=== PATIENT | female | born 1985 | race Two or more races ===

== ENCOUNTER 2019-12-15 17:48 | Inpatient (IN) | payer OTHER ==
[~2019-12-15] VITALS: Ht 162.6 cm; Wt 113.9 kg
[2019-12-15] MEDS ORDERED: ZINC SULFATE 220mg CAP or TAB PO ONE (18:30)
[2019-12-15] MEDS ORDERED: ENOXAPARIN SOD 100 MG/1 ML SYRINGE SC ONE (18:30)
[2019-12-15] MEDS ORDERED: AZITHROMYCIN 500MG/ 250ML 250 ML IV ONE (18:30)
[2019-12-15] MEDS ORDERED: PANTOPRAZOLE 40 MG/10 ML VIAL INJ IV ONE (18:30)
[2019-12-15] MEDS ORDERED: methylPREDNISolone SOD SUCC 125 MG/2 ML VL IV ONE (18:30)
[2019-12-15] MEDS ORDERED: ASCORBIC ACID 500 MG TAB PO ONE (18:30)
[2019-12-15] MEDS ORDERED: hydrOXYchloroQUINE SULFATE 200 MG TAB PO ONE (18:30)
[2019-12-15 19:02] LABS: Basophils # (auto) 0 10 ^3/uL (0-0.2); Basophils % (auto) 0.2 % (0.0-2.0); Eosinophils # (auto) 0 10 ^3/uL (0-0.8); Hematocrit 33.9 % (36.0-46.0); Hemoglobin 10.8 g/dL (12.2-16.2); Lymphocytes # (auto) 1.7 10 ^3/uL (0.4-5.4); Lymphocytes % (auto) 24.2 % (10.0-50.0); Mean Corpuscular Hemoglobin 23.6 pg (28.0-32.0); Mean Corpuscular Volume 73.8 fL (80.0-100.0); Monocytes # (auto) 0.4 10 ^3/uL (0-1.3); Monocytes % (auto) 5.7 % (0.0-12.0); Neutrophils # (auto) 4.8 10 ^3/uL (1.6-8.6); Neutrophils % (auto) 69.9 % (37.0-80.0); Platelet Count (auto) 284 10^3/uL (140-450); Red Blood Cells 4.59 10^6/uL (4.0-5.20); Red Cell Distribution Width 16.7 % (11.8-14.3); White Blood Cell 6.9 10^3/uL (4.4-10.8)
[2019-12-15 19:07] LABS: Albumin 2.6 g/dL (3.4-5.0); Anion Gap 7 (5-15); Blood Urea Nitrogen 6 mg/dL (7-18); Calcium 7.1 mg/dL (8.5-10.1); Carbon Dioxide 22 mmol/L (21-32); Chloride 108 mmol/L (98-107); Glucose 112 mg/dL (74-106); Sodium 137 mmol/L (136-145)
[2019-12-15 19:16] LABS: Alanine Aminotransferase 18 U/L (13-56); Alkaline Phosphatase 50 U/L (45-117); Aspartate Aminotransferase 16 U/L (15-37); BUN/Creatinine Ratio 9.5; Bilirubin, Total 0.6 mg/dL (0.2-1.0); GFR African American 139 mL/min; GFR Non-African American 115 mL/min; Lactate Dehydrogenase 222 U/L (84-246); Total Protein 6.8 g/dL (6.4-8.2)
[2019-12-15 19:22] LABS: Potassium 2.7 mmol/L (3.5-5.1)
[2019-12-15] MEDS ORDERED: POTASSIUM CHL 20MEQ/100ML 100 ML IV ONE (19:30)
[2019-12-15] MEDS ORDERED: ACETAMINOPHEN 500 MG TAB PO PRN (21:45)
[2019-12-15] MEDS ORDERED: NITROGLYCERIN 0.4 MG SL TAB SL PRN (22:00)
[2019-12-15] MEDS ORDERED: MORPHINE SULF INJ 2 MG/ML SYRINGE 1ML IV PRN (22:00)
[2019-12-15] MEDS: FAMOTIDINE 20 MG TAB PO SCH (22:09)
--- NOTE | 2019-12-16 06:15 | NUR ---
Telemetry admit from [facility] admitted to Telemetry unit after SBAR received. Patient oriented to Maria Guadalupe Schumacher, primary RN, unit, room, bed, and unit policies regarding patient care and visiting hours. Patient now on continuous telemetry monitoring, tele box # 31 and telemetry reading on arrival to unit is sinus rhythm. Patient placed on bedside oxygen, weighed by bedscale and encouraged to call if they need something. All questions and concerns addressed, patient verbalized understanding.
[2019-12-16 06:45] VITALS: BP 96/55
[2019-12-16] MEDS ORDERED: ENOXAPARIN SOD 40 MG/0.4 ML SYRINGE SC SCH (10:00)
[2019-12-16] MEDS ORDERED: AZITHROMYCIN 500MG/ 250ML 250 ML IV SCH (10:00)
[2019-12-16 10:20] LABS: Basophils # (auto) 0 10 ^3/uL (0-0.2); Eosinophils # (auto) 0 10 ^3/uL (0-0.8); Hemoglobin 10.2 g/dL (12.2-16.2); Lymphocytes # (auto) 0.9 10 ^3/uL (0.4-5.4); Mean Corpuscular Volume 73.6 fL (80.0-100.0); Monocytes # (auto) 0.3 10 ^3/uL (0-1.3)
[2019-12-16] MEDS: ASCORBIC ACID 1,000 MG TAB PO SCH (10:20)
[2019-12-16] MEDS: ZINC SULFATE 220mg CAP or TAB PO SCH (10:20)
[2019-12-16] MEDS: CHOLECALCIFEROL (VITD3) 1,000UNIT=25mCg TAB PO SCH (10:20)
[2019-12-16] MEDS: FAMOTIDINE 20 MG TAB PO SCH ×2 (10:21→22:00)
[2019-12-16 10:22] LABS: Basophils % (auto) 0.1 % (0.0-2.0); Hematocrit 31.3 % (36.0-46.0); Lymphocytes % (auto) 12.3 % (10.0-50.0); Mean Corpuscular Hemoglobin 23.9 pg (28.0-32.0); Mean Corpuscular Hgb Conc. 32.5 g/dL (32.0-36.0); Monocytes % (auto) 3.5 % (0.0-12.0); Neutrophils # (auto) 6.5 10 ^3/uL (1.6-8.6); Neutrophils % (auto) 84.1 % (37.0-80.0); Platelet Count (auto) 292 10^3/uL (140-450); Red Blood Cells 4.25 10^6/uL (4.0-5.20); Red Cell Distribution Width 16.6 % (11.8-14.3); White Blood Cell 7.7 10^3/uL (4.4-10.8)
[2019-12-16 10:44] LABS: Albumin 2.8 g/dL (3.4-5.0); Calcium 7.9 mg/dL (8.5-10.1); Potassium 3.8 mmol/L (3.5-5.1)
[2019-12-16] MEDS ORDERED: levoFLOXacin 250 MG TAB PO ONE (10:45)
[2019-12-16 10:48] LABS: BUN/Creatinine Ratio 13.3; Bilirubin, Total 0.3 mg/dL (0.2-1.0); Total Protein 7.1 g/dL (6.4-8.2)
--- NOTE | 2019-12-16 12:03 | NUR ---
HYDROXYCHOLOQUINE DR. GRACE EXPLAINED THE RISKS TO THE PATIENT AND THAT THE MEDICATION IS NOT APPROVED BY THE FDA FOR TREATMENT OF COVID. HE EXPLAINED THAT IT IS BEING TRIALED AND ASKED IF SHE WOULD LIKE TO TAKE IT. PATIENT AGREED.
[2019-12-16] MEDS: DOXYCYCLINE 100 MG TAB/CAP PO SCH ×2 (13:00→22:01)
[2019-12-16] MEDS: DexAMETHasone SOD PHOS 10MG/1ML VIAL INJ IV SCH (13:01)
[2019-12-16] MEDS: ALBUTEROL SULF HFA 90MCG INH 200DOSE IN SCH ×2 (15:03→22:03)
[2019-12-16 15:53] VITALS: BP 96/55
[2019-12-16] MEDS ORDERED: FUROSEMIDE 20 MG/2 ML VIAL IV ONE (17:15)
[2019-12-16] MEDS ORDERED: POTASSIUM CHLORIDE 8 MEQ TAB PO ONE (17:15)
--- NOTE | 2019-12-16 19:25 | NUR ---
Opening Shift Note Received report from day time rn. Assumed care of patient, awake and alert. No S/S of distress/SOB or pain. Instructed on POC and to call for assist PRN. Fall precaution measures in place. Will continue to monitor for changes Q1hr and PRN.
[2019-12-16] MEDS ORDERED: methylPREDNISolone SOD SUCC 40 MG/ML VL IV ONE (19:45)
[2019-12-16] MEDS ORDERED: diphenhdrAMINE HCL 50 MG/1 ML VL IV ONE (19:45)
[2019-12-16] MEDS ORDERED: ACETAMINOPHEN 650 mg PER 20 mL UD PO ONE (19:45)
[2019-12-16] MEDS ORDERED: methylPREDNISolone SOD SUCC 40 MG/ML VL ONE (21:41)
[2019-12-16] MEDS ORDERED: diphenhdrAMINE HCL 50 MG/1 ML VL ONE (21:41)
[2019-12-16 22:00] VITALS: BP 126/72
[2019-12-16] MEDS: hydrOXYchloroQUINE SULFATE 200 MG TAB PO SCH (22:00)
[2019-12-16] MEDS: ENOXAPARIN SOD 80 MG/0.8ML SYRINGE SC SCH (22:02)
[2019-12-16] MEDS: TOCILIZUMAB 400 MG in SODIUM CHL 0.9% 80 ML IV SCH (22:31)
[2019-12-17] MEDS: TEMAZEPAM 15 MG CAP PO PRN ×2 (00:10→23:33)
[2019-12-17 05:00] VITALS: BP 107/72
[2019-12-17] MEDS ORDERED: diphenhdrAMINE HCL 50 MG/1 ML VL IV ONE (07:45)
[2019-12-17] MEDS ORDERED: ACETAMINOPHEN 650 mg PER 20 mL UD PO ONE (07:45)
[2019-12-17] MEDS ORDERED: methylPREDNISolone SOD SUCC 40 MG/ML VL IV ONE (07:45)
--- NOTE | 2019-12-17 08:10 | NUR ---
Actemra - pharm Called pharmacy to request Actemra. They said they would send it up. Benadryl, Solumedrol, and Tylenol given.
[2019-12-17 09:00] VITALS: BP 103/67
[2019-12-17] MEDS: TOCILIZUMAB 400 MG in SODIUM CHL 0.9% 80 ML IV SCH (09:23)
[2019-12-17] MEDS: DexAMETHasone SOD PHOS 10MG/1ML VIAL INJ IV SCH (09:23)
[2019-12-17] MEDS: FAMOTIDINE 20 MG TAB PO SCH ×2 (09:24→21:27)
[2019-12-17] MEDS: ZINC SULFATE 220mg CAP or TAB PO SCH (09:24)
[2019-12-17] MEDS: FUROSEMIDE 20 MG/2 ML VIAL IV SCH (09:24)
[2019-12-17] MEDS: POTASSIUM CHLORIDE 8 MEQ TAB PO SCH (09:24)
[2019-12-17] MEDS: hydrOXYchloroQUINE SULFATE 200 MG TAB PO SCH (09:25)
[2019-12-17] MEDS: DOXYCYCLINE 100 MG TAB/CAP PO SCH ×2 (09:25→21:27)
[2019-12-17] MEDS: ENOXAPARIN SOD 80 MG/0.8ML SYRINGE SC SCH ×2 (09:25→21:27)
[2019-12-17] MEDS: ASCORBIC ACID 1,000 MG TAB PO SCH (09:25)
[2019-12-17] MEDS: CHOLECALCIFEROL (VITD3) 1,000UNIT=25mCg TAB PO SCH (09:25)
[2019-12-17] MEDS: ALBUTEROL SULF HFA 90MCG INH 200DOSE IN SCH ×3 (09:33→23:16)
[2019-12-17] MEDS ORDERED: AZITHROMYCIN 250 MG TAB PO SCH (10:00)
[2019-12-17] MEDS ORDERED: levoFLOXacin 250 MG TAB PO SCH (10:00)
[2019-12-17 13:00] VITALS: BP 124/84
--- NOTE | 2019-12-17 16:22 | NUR ---
Anxiety RT and WET SILK HANGER said the patient was anxious and holding her breath. This nurse spoke with the patient and she said she had been out of breath because the BSC wasn't emptied so she removed her O2 and walked to the bathroom. This caused SOB and anxiety. This nurse emptied the BSC and informed her to let us know if she used it and it needed to be emptied rather than walking to the bathroom. She verbalized agreement and said she was no longer as anxious.
[2019-12-17 17:00] VITALS: BP 119/78
--- NOTE | 2019-12-17 19:20 | NUR ---
Opening Shift Note Received report from from day shift RN. Assumed care of patient, awake and a0x4. No S/S of distress/SOB or pain. Instructed on POC and to call for assist PRN. Fall precaution measures in place. Will continue to monitor for changes Q1hr and PRN.
--- NOTE | 2019-12-17 19:40 | NUR ---
CHEST PAIN PT IS HAVING CHEST PAIN 01/08. INITIATE CHEST PAIN PROTOCOL RAISED PT O2 TO 6L, VITAL SIGNS ARE FOLLOWS B/P- 131/71, HR-98, O2- 90%, RR-24, T-97.6. GAVE PT NTROSTAT AFTER 5MIN PT CHEST PAIN ARE GONE REASSESS PT VITAL SIGN ARE FOLLOW B/P-104/61 HR -100 O2-90% RR-20 NO S/S OF DISTRESS OR SOB . EKG PERFORM NO ABNORMALITIES NOTED . 20:21-MD Called/paged called regarding pt chest pain Waiting for call back. Continue care. 20:26- MD returned call Dr. thompson returned call, updated on patient status and reason for call, orders received. order read back and verified by Continue care. Dr. Thompson did not signed ekg because of covid precaution
[2019-12-17 22:12] VITALS: BP 121/71
--- NOTE | 2019-12-17 23:18 | NUR ---
received call from bus monitor received call from bus monitor that pt is in afib went to assess pt, pt is sob trying to get back in bed from using the bed side commode.Assist pt back into bed place pt on 10l Oxymizer, vital sign as follow b/p-116/87,hr-88,o2-90%, rr-24,t-98.4 and perform a EKG no abnormality noted . Pt is now calm, no s/s of distress or sob is noted
[2019-12-17] MEDS: ONDANSETRON HCL 4 MG/2 ML VIAL IV PRN (23:33)
[2019-12-18 05:00] VITALS: BP 109/61
[2019-12-18] MEDS: ALBUTEROL SULF HFA 90MCG INH 200DOSE IN SCH ×3 (06:58→23:48)
[2019-12-18 08:54] VITALS: BP 133/87
[2019-12-18] MEDS: POTASSIUM CHLORIDE 8 MEQ TAB PO SCH (10:00)
[2019-12-18] MEDS: CHOLECALCIFEROL (VITD3) 1,000UNIT=25mCg TAB PO SCH (10:00)
[2019-12-18] MEDS: FUROSEMIDE 20 MG/2 ML VIAL IV SCH (10:17)
[2019-12-18] MEDS: ZINC SULFATE 220mg CAP or TAB PO SCH (10:17)
[2019-12-18] MEDS: DOXYCYCLINE 100 MG TAB/CAP PO SCH ×2 (10:18→22:23)
[2019-12-18] MEDS: hydrOXYchloroQUINE SULFATE 200 MG TAB PO SCH ×2 (10:18→22:23)
[2019-12-18] MEDS: ENOXAPARIN SOD 80 MG/0.8ML SYRINGE SC SCH ×2 (10:18→22:23)
[2019-12-18] MEDS: DexAMETHasone SOD PHOS 10MG/1ML VIAL INJ IV SCH (10:19)
[2019-12-18] MEDS: ASCORBIC ACID 1,000 MG TAB PO SCH (10:19)
[2019-12-18] MEDS: FAMOTIDINE 20 MG TAB PO SCH ×2 (10:19→22:22)
[2019-12-18 12:30] VITALS: BP 118/57
[2019-12-18 17:27] VITALS: BP 131/80
[2019-12-18] MEDS: Ensure HIGH Protein Chocolate 8oz Bottle PO SCH (18:00)
[2019-12-18] MEDS: TEMAZEPAM 15 MG CAP PO PRN (22:22)
[2019-12-18 23:23] VITALS: BP 100/65
[2019-12-19 05:37] VITALS: BP 128/68
--- NOTE | 2019-12-19 07:35 | NUR ---
Opening Shift Note Assumed care of patient, awake and a0x4. No S/S of distress/SOB or pain. Instructed on POC and to call for assist PRN. Fall precaution measures in place. Will continue to monitor for changes Q1hr and PRN.
[2019-12-19 08:38] LABS: Hemoglobin 11.2 g/dL (12.2-16.2)
[2019-12-19 08:40] LABS: Hematocrit 34.5 % (36.0-46.0); Mean Corpuscular Hemoglobin 23.6 pg (28.0-32.0); Mean Corpuscular Hgb Conc. 32.4 g/dL (32.0-36.0); Mean Corpuscular Volume 72.9 fL (80.0-100.0); Platelet Count (auto) 414 10^3/uL (140-450); Red Blood Cells 4.73 10^6/uL (4.0-5.20); Red Cell Distribution Width 16.5 % (11.8-14.3); White Blood Cell 7.2 10^3/uL (4.4-10.8)
[2019-12-19 08:42] LABS: Basophils % (manual) 0 (0.0-2.0); Blast Cells 0; Eosinophils % (manual) 0 (0-7); Metamyelocytes % 0; Promyelocytes % 0; Reactive Lymphocytes 0
[2019-12-19] MEDS: ALBUTEROL SULF HFA 90MCG INH 200DOSE IN SCH ×3 (08:49→22:50)
[2019-12-19 09:00] VITALS: BP 116/71
[2019-12-19 09:03] LABS: Albumin 2.7 g/dL (3.4-5.0); Calcium 8.5 mg/dL (8.5-10.1); Potassium 3.7 mmol/L (3.5-5.1)
[2019-12-19 09:07] LABS: BUN/Creatinine Ratio 27.3; Bilirubin, Total 0.5 mg/dL (0.2-1.0)
[2019-12-19 09:14] LABS: Band Neutrophils % (manual) 1; Lymphocytes % (manual) 41 (10.0-50.0); Monocytes % (manual) 14 (0-12); Myelocytes % 2
[2019-12-19] MEDS: DexAMETHasone SOD PHOS 10MG/1ML VIAL INJ IV SCH (10:25)
[2019-12-19] MEDS: Ensure HIGH Protein Chocolate 8oz Bottle PO SCH ×3 (10:25→19:03)
[2019-12-19] MEDS: hydrOXYchloroQUINE SULFATE 200 MG TAB PO SCH ×2 (10:26→22:52)
[2019-12-19] MEDS: ZINC SULFATE 220mg CAP or TAB PO SCH (10:26)
[2019-12-19] MEDS: FAMOTIDINE 20 MG TAB PO SCH ×2 (10:26→22:52)
[2019-12-19] MEDS: FUROSEMIDE 20 MG/2 ML VIAL IV SCH (10:26)
[2019-12-19] MEDS: DOXYCYCLINE 100 MG TAB/CAP PO SCH ×2 (10:26→22:52)
[2019-12-19] MEDS: POTASSIUM CHLORIDE 8 MEQ TAB PO SCH (10:26)
[2019-12-19] MEDS: ASCORBIC ACID 1,000 MG TAB PO SCH (10:26)
[2019-12-19] MEDS: ENOXAPARIN SOD 80 MG/0.8ML SYRINGE SC SCH ×2 (10:27→22:52)
[2019-12-19] MEDS: CHOLECALCIFEROL (VITD3) 1,000UNIT=25mCg TAB PO SCH (10:27)
[2019-12-19 11:51] VITALS: BP 149/87
[2019-12-19] MEDS ORDERED: levoFLOXacin 250 MG TAB PO ONE (12:00)
[2019-12-19 13:00] VITALS: BP 100/68
--- NOTE | 2019-12-19 14:29 | NUR ---
Nutrition Assessment Notes please see attached link for complete assessment Est energy needs ABW 83 [id number] kcal (17-20 kcal/kg BW), Est protein needs: 83-91 g (1.0-1.1g/kg BW). Will reassess prn. Addendum: 12/19/19 at [address] Amended: Links added.
[2019-12-19 17:21] VITALS: BP 104/71
--- NOTE | 2019-12-19 19:40 | NUR ---
Opening Shift Note Received report and assumed care of patient. Patient is awake and alert. No signs or symptoms of distress noted, patient currently denies pain. Instructed patient on plan of care and to call for assistance as needed. Will continue to monitor.
[2019-12-19 22:00] VITALS: BP 106/77
[2019-12-20 05:00] VITALS: BP 113/75
--- NOTE | 2019-12-20 05:40 | NUR ---
[facility] Hospitalist Patient states feeling "light headed". Patient's apical pulse 46, Blood pressures 92/61 and 98/50. Patient drank juice, heart rate in 50s-60s. Patricia Hospitalist, no new orders at this time, states to call back if it reoccurs. Will continue to monitor.
[2019-12-20] MEDS: ONDANSETRON HCL 4 MG/2 ML VIAL IV PRN (05:43)
[2019-12-20] MEDS: hydrOXYchloroQUINE SULFATE 200 MG TAB PO SCH ×2 (08:58→21:42)
[2019-12-20] MEDS: DexAMETHasone SOD PHOS 10MG/1ML VIAL INJ IV SCH (08:58)
[2019-12-20] MEDS: FAMOTIDINE 20 MG TAB PO SCH ×2 (08:58→21:42)
[2019-12-20] MEDS: levoFLOXacin 250 MG TAB PO SCH (08:58)
[2019-12-20] MEDS: POTASSIUM CHLORIDE 8 MEQ TAB PO SCH (08:58)
[2019-12-20] MEDS: Ensure HIGH Protein Chocolate 8oz Bottle PO SCH ×2 (08:58→11:33)
[2019-12-20] MEDS: CHOLECALCIFEROL (VITD3) 1,000UNIT=25mCg TAB PO SCH (08:59)
[2019-12-20] MEDS: DOXYCYCLINE 100 MG TAB/CAP PO SCH ×2 (08:59→21:42)
[2019-12-20 09:00] VITALS: BP 108/71
[2019-12-20] MEDS: ASCORBIC ACID 1,000 MG TAB PO SCH (09:00)
[2019-12-20] MEDS: FUROSEMIDE 20 MG/2 ML VIAL IV SCH (09:00)
[2019-12-20] MEDS: ZINC SULFATE 220mg CAP or TAB PO SCH (09:01)
--- NOTE | 2019-12-20 10:53 | NUR ---
Opening Shift Note Assumed care of patient, awake and a0x4. PT CURRENTLY ON 5L OXYMIZER No S/S of distress/SOB or pain. Instructed on POC and to call for assist PRN. Fall precaution measures in place. Will continue to monitor for changes Q1hr and PRN. Addendum: 12/20/19 at 1054 by LEELA ROCK RN RN INCORRECT TIME. CORRECT TIME 8420
[2019-12-20] MEDS: ENOXAPARIN SOD 80 MG/0.8ML SYRINGE SC SCH ×2 (11:32→21:42)
[2019-12-20] MEDS: ALBUTEROL SULF HFA 90MCG INH 200DOSE IN SCH ×2 (11:35→16:21)
[2019-12-20 13:00] VITALS: BP 105/70
--- NOTE | 2019-12-20 14:51 | NUR ---
PT TITRATED TO 3L VIA NC SPO2 97%. WILL CONTINUE TO MONITOR Q1HR AND PRN
[2019-12-20 16:51] VITALS: BP 117/67
--- NOTE | 2019-12-20 16:52 | NUR ---
assessment Patient is a 34 year old female who is alert and oriented and Covid positive. Patients cognitive abilities are intact. Prior to admission patient lived home with family and functioned independently. Patient informed me she is able to care for her own ADLs. Per patient she will return home to her prior living arrangements post discharge and family will transport her home. Patient informed me her PCP is Dr Vergara in [place]. Patient informed me she works at an [employer] and may have got covid 19 from work. Patients is positive also and works at the same facility. Patient is on 7L oxygen today. Patient may need oxygen on discharge. I will continue to monitor and follow up as appropriate. I informed patient she has a right to speak to a social insurance analyst regarding all care. I informed patient she has a right to participate in any and all discharge planning. Patient does not have a POA and advanced directive. I have offered patient information on POA and advanced directives. I informed the patient the advantages and benefits of having an Advanced Directive. Patient verbalized understanding and agreed to discharge plan. Addendum: 12/20/19 at 1653 by Gema PEREZ Amended: Links added.
--- NOTE | 2019-12-20 19:15 | NUR ---
Opening Shift Note Assumed care of patient, awake and alert. No S/S of distress/SOB or pain. Instructed on POC and to call for assist PRN, will continue to monitor for changes Q1hr and PRN.
[2019-12-20 20:00] VITALS: BP 102/72
[2019-12-20] MEDS: TEMAZEPAM 15 MG CAP PO PRN (21:42)
[2019-12-20 22:00] VITALS: BP 102/72
[2019-12-21] MEDS: ALBUTEROL SULF HFA 90MCG INH 200DOSE IN SCH ×4 (00:21→23:16)
[2019-12-21 05:00] VITALS: BP 105/62
[2019-12-21 06:59] LABS: White Blood Cell 10.4 10^3/uL (4.4-10.8)
[2019-12-21 07:05] LABS: Hematocrit 36.4 % (36.0-46.0); Hemoglobin 11.9 g/dL (12.2-16.2); Mean Corpuscular Hgb Conc. 32.6 g/dL (32.0-36.0); Mean Corpuscular Volume 73.6 fL (80.0-100.0); Platelet Count (auto) 445 10^3/uL (140-450); Red Blood Cells 4.95 10^6/uL (4.0-5.20); Red Cell Distribution Width 16.6 % (11.8-14.3)
[2019-12-21 07:21] LABS: Basophils % (manual) 0 (0.0-2.0); Blast Cells 0; Eosinophils % (manual) 0 (0-7); Promyelocytes % 0; Reactive Lymphocytes 0
[2019-12-21 07:28] LABS: Potassium 4.2 mmol/L (3.5-5.1)
[2019-12-21 07:34] LABS: Albumin 2.8 g/dL (3.4-5.0); BUN/Creatinine Ratio 31.3; Bilirubin, Total 0.4 mg/dL (0.2-1.0); CRP High Sensitivity 0.68 mg/dL (< 0.3); Calcium 8.6 mg/dL (8.5-10.1); Total Protein 6.7 g/dL (6.4-8.2)
[2019-12-21] MEDS: Ensure HIGH Protein Chocolate 8oz Bottle PO SCH ×3 (08:00→18:05)
[2019-12-21 08:16] VITALS: BP 102/52
[2019-12-21 09:39] LABS: Band Neutrophils % (manual) 1; Lymphocytes % (manual) 27 (10.0-50.0); Metamyelocytes % 5; Monocytes % (manual) 10 (0-12); Myelocytes % 4
[2019-12-21] MEDS: levoFLOXacin 250 MG TAB PO SCH (10:00)
[2019-12-21] MEDS: FUROSEMIDE 20 MG/2 ML VIAL IV SCH (10:47)
[2019-12-21] MEDS: DexAMETHasone SOD PHOS 10MG/1ML VIAL INJ IV SCH (10:52)
[2019-12-21] MEDS: ZINC SULFATE 220mg CAP or TAB PO SCH (10:52)
[2019-12-21] MEDS: hydrOXYchloroQUINE SULFATE 200 MG TAB PO SCH ×2 (10:52→21:25)
[2019-12-21] MEDS: FAMOTIDINE 20 MG TAB PO SCH ×2 (10:52→21:25)
[2019-12-21] MEDS: DOXYCYCLINE 100 MG TAB/CAP PO SCH ×2 (10:52→21:25)
[2019-12-21] MEDS: ASCORBIC ACID 1,000 MG TAB PO SCH (10:52)
[2019-12-21] MEDS: ENOXAPARIN SOD 80 MG/0.8ML SYRINGE SC SCH ×2 (10:52→21:25)
[2019-12-21] MEDS: CHOLECALCIFEROL (VITD3) 1,000UNIT=25mCg TAB PO SCH (10:52)
[2019-12-21] MEDS: POTASSIUM CHLORIDE 8 MEQ TAB PO SCH (10:52)
--- NOTE | 2019-12-21 11:14 | NUR ---
Angel ZARATE AT BEDSIDE. NEW ORDERS RECIEVED. SEE EMAR.
[2019-12-21 12:35] VITALS: BP 104/67
--- NOTE | 2019-12-21 16:07 | NUR ---
1540 12/21/19 - Contacted [facility] at [phone], requesting authorization for continued inpatient stay. Spoke with data mining analyst Mame who provided authorization [id number] for continued inpatient stay.
[2019-12-21 16:27] VITALS: BP 100/63
--- NOTE | 2019-12-21 18:58 | NUR ---
IV insertion IV access obtained, via clean sterile technique by inserting 22 gauge catheter at LFA after 1 attempt(s). IV secured properly. No trauma to site. Patient tolerated well. PATIENT REMOVED OWN IV ON ACCIDENT. NOTE:
[2019-12-21 20:00] VITALS: BP 100/50
[2019-12-21] MEDS: ACETYLCYSTEINE ORAL for CIN 20%(200MG/ML) 4ML PO SCH (21:57)
[2019-12-21 22:00] VITALS: BP 100/51
[2019-12-22 05:00] VITALS: BP 100/58
[2019-12-22] MEDS: Ensure HIGH Protein Chocolate 8oz Bottle PO SCH ×3 (08:00→18:00)
[2019-12-22 08:48] VITALS: BP 104/62
[2019-12-22] MEDS: ALBUTEROL SULF HFA 90MCG INH 200DOSE IN SCH ×2 (09:30→15:30)
--- NOTE | 2019-12-22 09:34 | NUR ---
0900 12/22/19 - Contacted [facility] Student Lay at [phone], regarding status of home oxygen order. Per Lay she will follow up with person assigned to this order and call me back, provider call back information. Addendum: 12/22/19 at 0941 by Kika Salcedo RN, CM Wrong patient
[2019-12-22] MEDS: DexAMETHasone SOD PHOS 10MG/1ML VIAL INJ IV SCH (09:39)
[2019-12-22] MEDS: FUROSEMIDE 20 MG/2 ML VIAL IV SCH (09:39)
[2019-12-22] MEDS: POTASSIUM CHLORIDE 8 MEQ TAB PO SCH (09:40)
[2019-12-22] MEDS: DOXYCYCLINE 100 MG TAB/CAP PO SCH ×2 (09:40→21:41)
[2019-12-22] MEDS: FAMOTIDINE 20 MG TAB PO SCH ×2 (09:40→21:41)
[2019-12-22] MEDS: levoFLOXacin 250 MG TAB PO SCH (09:40)
[2019-12-22] MEDS: ZINC SULFATE 220mg CAP or TAB PO SCH (09:40)
[2019-12-22] MEDS: ENOXAPARIN SOD 80 MG/0.8ML SYRINGE SC SCH ×2 (09:41→21:41)
[2019-12-22] MEDS: ASCORBIC ACID 1,000 MG TAB PO SCH (09:41)
[2019-12-22] MEDS: CHOLECALCIFEROL (VITD3) 1,000UNIT=25mCg TAB PO SCH (09:41)
[2019-12-22] MEDS: ACETYLCYSTEINE ORAL for CIN 20%(200MG/ML) 4ML PO SCH ×2 (09:55→21:49)
--- NOTE | 2019-12-22 12:03 | NUR ---
Nutrition Followup Note Wt 112.4kg Pt is covid positive in the covid wing. Pt current with a regular diet with adequate po intake aeb pt with avg po intake of 85% per RN note. Will continue to monitor pt po intake, labs, skin. Est energy needs ABW 83 [id number] kcal (17-20 kcal/kg BW), Est protein needs: 83-91 g (1.0-1.1g/kg BW). Will reassess prn. Labs: BUN 20H, Alb 2.8L BM: pt with 2 BMs 12/21 per Rn note Skin: BS 22 low risk, full details in care manager note PES; Altered nutrition related lab values r.t current chronic medical condition aeb hyperglycemia, hypocalcemia, mod hypoalb Decreased nutrient needs r/t adiposity aeb pt`s high BMI of 42.8 kgm2 Comments 1) refer to [facility] dietian on DC 2) continue current plan of care 3) D/C ensure Expected Outcomes/Goals: pt will have improved labs pt will not gain any more wt F/u mod 3-5 days
--- NOTE | 2019-12-22 12:06 | NUR ---
REGARDING LIGHTHEADED: CALLED TO INFORM Angel RAMOS OF PATIENTS LIGHT HEADEDNESS DURING AMBULATION AND WHILE SITTING. EKG COMPLETED WITH RESULTS CALLED TO Angel RECEIVED NEW ORDERS. SEE EMAR.
[2019-12-22] MEDS: SODIUM CHLORIDE 0.9% 1,000 ML IV SCH ×2 (12:35→22:15)
--- NOTE | 2019-12-22 12:45 | NUR ---
1115 12/22/19 - Faxed to [facility] at [phone] face sheet, order for home oxygen, H/P, progress note. Requesting authorization for DME. Pending review and approved authorization
[2019-12-22 12:50] VITALS: BP 120/64
[2019-12-22 15:27] VITALS: BP 120/64
[2019-12-22 16:48] VITALS: BP 124/70
--- NOTE | 2019-12-22 19:20 | NUR ---
Opening note Assumed care of patient. Patient alert and orientated x4. NO sob or distress noted at this time. Patient is on Room air. POC reviewed. Bed locked in lowest position side rails up x2. Call light within reach. Will continue to monitor.
--- NOTE | 2019-12-22 21:30 | NUR ---
Assist patient to bathroom. Patient wanted to use the bathroom, patient ambulated with stand by assistance. Patient reports no SOB or lightheadedness. Patient reports no symptoms or pain at this time. Will continue to monitor.
[2019-12-22 22:00] VITALS: BP 109/62
[2019-12-23] MEDS: ALBUTEROL SULF HFA 90MCG INH 200DOSE IN SCH ×2 (00:05→08:42)
[2019-12-23 05:09] VITALS: BP 145/91
--- NOTE | 2019-12-23 07:06 | NUR ---
Closing note Endorsed care to day shift RN patient is asleep chest evenly rising. NO signs of distress noted.
[2019-12-23] MEDS: Ensure HIGH Protein Chocolate 8oz Bottle PO SCH ×2 (08:00→12:16)
[2019-12-23 09:00] VITALS: BP 106/66
[2019-12-23] MEDS ORDERED: DOX100T PO (09:02)
[2019-12-23] MEDS ORDERED: CHOL1000 PO (09:02)
[2019-12-23] MEDS ORDERED: ALBUAER3 IN (09:02)
[2019-12-23] MEDS ORDERED: FERR-7 PO (09:04)
[2019-12-23] MEDS: FUROSEMIDE 20 MG/2 ML VIAL IV SCH (09:05)
[2019-12-23] MEDS: POTASSIUM CHLORIDE 8 MEQ TAB PO SCH (09:08)
[2019-12-23] MEDS: ACETYLCYSTEINE ORAL for CIN 20%(200MG/ML) 4ML PO SCH (09:33)
[2019-12-23] MEDS: DexAMETHasone SOD PHOS 10MG/1ML VIAL INJ IV SCH (09:33)
[2019-12-23] MEDS: ZINC SULFATE 220mg CAP or TAB PO SCH (09:33)
[2019-12-23] MEDS: FAMOTIDINE 20 MG TAB PO SCH (09:34)
[2019-12-23] MEDS: ENOXAPARIN SOD 80 MG/0.8ML SYRINGE SC SCH (09:34)
[2019-12-23] MEDS: DOXYCYCLINE 100 MG TAB/CAP PO SCH (09:34)
[2019-12-23] MEDS: CHOLECALCIFEROL (VITD3) 1,000UNIT=25mCg TAB PO SCH (09:34)
[2019-12-23] MEDS: ASCORBIC ACID 1,000 MG TAB PO SCH (09:34)
--- NOTE | 2019-12-23 10:20 | NUR ---
1000 12/23/19 - Contacted [facility] at [phone] requesting update on DME order for home oxygen, per comp field case manager AJ who stated that the [facility] policy is that patient's O2 on room air must be below 90 % to qualify for home oxygen.
[2019-12-23] MEDS ORDERED: hydrOXYchloroQUINE SULFATE 200 MG TAB PO SCH (12:00)
[2019-12-23 12:14] VITALS: BP 118/67
--- NOTE | 2019-12-23 13:57 | NUR ---
Discharge instructions given as ordered. Encourage to follow up with PMD as instructed. Patient discharged and instructed on all new medications. instructed to self-isolate per M.D. orders. instructed on home oxygen use. All questions and concerns addressed. Patient verbalized understanding. Medication reconciliation form completed and copy given to patient. IV removed with catheter intact, pressure dressing applied, silva catheter removed. Telemetry unit returned to ICU. Patient taken to vehicle via wheelchair with all personal belongings, accompanied by staff and family member. No distress noted at time of departure.
== END 2019-12-23 13:56 | disposition home or self-care (01) | DRG 871 ==
LOC: EDBD 17:48 → ER 17:48 → TELE 17:49 → TELE-EAST 12-16 08:29
PROVIDERS: ADMIT Nurse Practitioner; ATTEND Internal Medicine Nephrology
DX: A41.89 Other specified sepsis (principal); J12.89 Other viral pneumonia; J96.01 Acute respiratory failure with hypoxia; U07.1 COVID-19; D50.9 Iron deficiency anemia, unspecified; E66.01 Morbid (severe) obesity due to excess calories; E87.6 Hypokalemia; R65.20 Severe sepsis without septic shock; R55 Syncope and collapse; Z88.0 Allergy status to penicillin
CPT/HCPCS: 36415; 71045; 80053; 82728; 83605; 83615; 83735; 83880; 84443; 84484; 85007; 85025; 85027; 85379; 86141; 87040; 93005; 94640; C9113; G0378; J1100; J2405; J3480